=== PATIENT | female | born 1955 | race Caucasian/White ===

== ENCOUNTER 2017-11-15 13:00 | Outpatient (RCR) | payer BC, SELFPAY ==
--- NOTE | 2017-10-06 08:17 | NT_ITS ---
NON TREATMENT NOTE: 10/06/17 Patient called in to cancel today's appointment.
--- NOTE | 2017-10-06 10:43 | NT_ITS ---
NON TREATMENT NOTE: 10/06/17 Patient called in to cancel today's appointment
--- NOTE | 2017-10-31 14:19 | PTTR_ITS ---
DATE: 10/31/17 SUBJECTIVE: I am doing okay for the most part. I am maybe getting a little bit better. OBJECTIVE: Manual therapy: ([id number]): Patient was first assessed with multi-segmental flexion, extension and rotation to gauge ankle stability. There was no pain with any of those movements. She was then guided through single leg stance with 15 seconds average on the right and 6 seconds average on the left. Patient placed supine on the table and gently mobilized with light distraction of the ankle at the talocrural joint from 10 degrees of plantarflexion. Patient softly inverted and everted within her tolerance. Gentle subtalar glides with medial and lateral glides of the calcaneus over the talus. She was then mobilized with gentle soft tissue work over the malleoli on the left. Direct treatment time: 30 minutes of direct patient care.
--- NOTE | 2017-11-15 13:56 | PTTR_ITS ---
DATE: 11/15/17 SUBJECTIVE: I am doing okay. The Doctor says that he will see me back in about 3 months and if I am not better at that point then he may explore other options. OBJECTIVE: Manual therapy: ([id number]): Patient was placed in supine and mobilized with gentle oscillatory traction through the talocrural joint as the ankle was held in 10 degrees of plantar flexion. She was then mobilized with gentle stretch through the achilles tendon and gastroc with low load long duration holds. Patient lightly mobilized through the talus with posterior and anterior glides on top of a fixed ankle mortise. Patient mobilized through the subtalar joint with gentle medial and lateral glides of the calcaneus while fixing the talus. Transverse tarsal joint mobilizations into supination and pronation were completed with good tolerance and patient receiving IASTM through the peroneal tendons and posterior surface of the lateral malleolus. Direct treatment time: 35 minutes of direct patient care.
== END 2017-11-25 23:59 | disposition home or self-care (01) ==
LOC: PT 13:00
PROVIDERS: PCP Internal Medicine; Referring Provider Internal Medicine; Visit Provider Internal Medicine
DX: M25.572 Pain in left ankle and joints of left foot (principal)
CPT/HCPCS: 97140